=== PATIENT | male | born 1995 | race Caucasian/White ===

== ENCOUNTER 2022-06-11 15:23 | Observation (INO) ==
[2022-06-11 17:08] LABS: Basophils # (auto) 0.05 K/uL (0-0.2); Basophils % (auto) 0.5 %; Eosinophils # (auto) 0.03 K/uL (0-0.50); Eosinophils % (auto) 0.3 %; Hematocrit (blood only) 50.7 % (40.1-51.0); Hemoglobin 17.4 g/dl (14.0-18.0); Immature Granulocytes # (auto) 0.03 K/uL (0.00-0.02); Immature Granulocytes % (auto) 0.3 %; Lymphocytes # (auto) 2.47 K/uL (1.2-3.4); Lymphocytes % (auto) 25.1 %; Mean Corpuscular Hemoglobin 28.2 pg (25.0-34.0); Mean Corpuscular Hgb Conc 34.3 g/dL (32.0-36.0); Mean Corpuscular Volume 82.3 fL (80.0-100.0); Mean Platelet Volume 11.2 fL (9.4-12.4); Monocytes # (auto) 0.69 K/uL (0.24-0.82); Neutrophils # (auto) 6.56 K/uL (1.4-6.5); Neutrophils % (auto) 66.8 %; Platelet Count 301 K/uL (130-400); RDW Standard Deviation 38.5 fL (36.4-46.3); Red Blood Count 6.16 M/uL (4.63-6.08); White Blood Count 9.83 K/ul (4.8-10.8)
[2022-06-11 17:22] LABS: INR 1.1 (0.9-1.1); Partial Thromboplastin Time 26.8 Seconds (21.0-31.0); Prothrombin Time 11.2 Seconds (9.0-12.0)
[2022-06-11 17:52] LABS: Troponin I High Sensitivity 2.6 pg/ml (0-20)
[2022-06-11 17:56] LABS: Albumin Globulin Ratio 1.7 (0.9-2); Albumin Level 4.8 gm/dl (3.4-5.0); BUN Creatinine Ratio 13.6 (10-20); Bilirubin,Total 0.5 mg/dl (0.2-1.0); Calcium 9.8 mg/dl (8.5-10.1); Creatinine Clr Calc Pharmacy 141.7 ml/min; Est GFR (African American) 106.1 ml/min; Est GFR (Non-African American) 91.5 ml/min; Globulin 2.8 gm/dl (2.5-4.0); Potassium 3.9 mmol/L (3.5-5.1); Total Protein 7.6 gm/dl (6.0-8.3)
--- NOTE | 2022-06-11 18:13 | Emergency Department Note ---
History of Present Illness General Chief complaint: Chest Pain Stated complaint: CHEST PAIN Time Seen by Provider: 06/11/22 17:59 History of Present Illness This is a 26-year-old male that presents to the emergency department via private vehicle accompanied by female with complaints of "chest pain". The patient notes that the first episode occurred this past Saturday. He states that he was ascending a flight of steps and he felt quite short of breath and fatigued while doing so. He then noted lightheadedness, feeling exhausted, and diaphoretic. This lasted for a few minutes after ascending the flight of steps. He notes that he finds that he is quite dyspneic with exertion now. He also notes intermittent chest pain/tightness with exertion but also now occurring at rest. This has never happened before. No known trauma or injury. Patient denies any fevers, chills, vomiting, rhinorrhea, cough. He does note some nausea. Patient denies any cardiac history with his mother. He does not know his father's history. Patient does note that he has a history of anxiety, asthma. Home Medications Medication Instructions Recorded Confirmed Type albuterol sulfate 90 mcg/actuation 2 puff inhalation Q4H PRN 06/11/22 06/11/22 History aerosol inhaler Shortness Of Breath Or Wheezing hydroxyzine HCl 50 mg tablet 50 mg PO QID PRN Anxiety 06/11/22 06/11/22 History sertraline 25 mg tablet 25 mg PO DAILY 06/11/22 06/11/22 History Allergies Allergy/AdvReac Type Severity Reaction Status Date / Time clarithromycin Allergy Intermediate HIVES Verified 06/11/22 19:11 Macrolide Antibiotics Allergy Intermediate HIVES Verified 06/11/22 19:11 Quinolones Allergy Intermediate HIVES Verified 06/11/22 19:11 Past Med/Surg History Medical History Depression Essential tremor Generalized anxiety disorder Lumbar back pain with radiculopathy affecting right lower extremity Surgical History Hx of tonsillectomy Family History Other Depression Social History Smoking Status: Never smoker Hx Alcohol Use: Yes Alcohol Intake Frequency: 2-4 x/Month Hx Substance Use: Yes Feels Safe at Home: Yes Review of Systems A total of 10 systems reviewed and were otherwise negative Physical Exam Vital Signs Vital Signs - 24 hr 06/11/22 15:32 06/11/22 18:01 06/11/22 19:30 Temperature 37.0 C Temperature Source Temporal Artery Scan Pulse Rate 89 91 H Pulse Rate [Apical] 92 H Pulse Rate from SpO2 Sensor 95 H Pulse Rhythm [Apical] Regular Pulse Strength [Apical] Normal Respiratory Rate 18 20 20 Respiratory Effort / Characteristics Non-Labored Non-Labored Spontaneous Respiratory Depth Normal Normal Respiratory Pattern Regular Regular Blood Pressure 148/93 H 142/94 H Blood Pressure [Right Arm] 162/129 H Blood Pressure Mean 111 110 Blood Pressure Mean [Right Arm] 140 Blood Pressure Position Sitting Blood Pressure Position [Right Arm] Sitting Pulse Oximetry 97 95 98 Oxygen Delivery Method Room Air Room Air Sepsis Recent Fever Within 48 Hours No Sepsis New/Unexplained Change in Mental Status No Sepsis Action Taken by Nursing No Action Required 06/11/22 20:00 06/11/22 21:00 Temperature Temperature Source Pulse Rate 78 86 Pulse Rate [Apical] Pulse Rate from SpO2 Sensor 80 88 Pulse Rhythm [Apical] Pulse Strength [Apical] Respiratory Rate 20 12 Respiratory Effort / Characteristics Respiratory Depth Respiratory Pattern Blood Pressure 155/99 H 150/101 H Blood Pressure [Right Arm] Blood Pressure Mean 117 117 Blood Pressure Mean [Right Arm] Blood Pressure Position Blood Pressure Position [Right Arm] Pulse Oximetry 98 96 Oxygen Delivery Method Sepsis Recent Fever Within 48 Hours Sepsis New/Unexplained Change in Mental Status Sepsis Action Taken by Nursing VITAL SIGNS - Vital signs and nursing notes were reviewed. Stable and afebrile. GENERAL -26-year-old male appearing his stated age who is in no acute distress. Communicates well with provider and answers questions appropriately. SKIN - Without rashes. No meningeal or petechial rash. HEAD - NC/AT. EYES - PERRL with EOMI bilaterally. Sclera anicteric. EARS - No deformities of external structures noted on gross examination bilaterally. NOSE - Midline and without cyanosis. No epistaxis or purulent drainage noted. MOUTH/OROPHARYNX - Without perioral cyanosis. NECK - Neck with FROM. No nuchal rigidity. LUNGS - Chest wall symmetric without accessory muscle use, intercostals retractions, or central cyanosis. Normal vesicular breath sounds CTA B/L. No wheezes, rales, or rhonchi appreciated. CARDIAC - RRR with S1/S2. No murmur, rubs, or gallops appreciated. ABDOMEN - Abdominal contour normal without pulsations or visible masses. BS normoactive all four quadrants. No tenderness, palpable masses, hepatosplenomegaly, or ascites noted. EXTREMITIES - No clubbing or peripheral cyanosis. +5/5 strength noted in UE/LE bilaterally. NEUROLOGIC - Cranial nerves II through XII grossly intact. PSYCH - A&O, and cooperates fully with examiner. Pt is very pleasant and interacts well with examiner. Course Administered Medications Discontinued Medications Doxycycline Hyclate (Doxycycline Hyclate 100 Mg Cap) 100 mg PO NOW STA Stop: 06/11/22 20:13 Last Admin: 06/11/22 20:27 Dose: 100 mg Documented By: AMANDA Ioversol (Optiray 320 125ml) 120 ml IV ONCE ONE Stop: 06/11/22 18:56 Last Admin: 06/11/22 18:55 Dose: 1 ml Documented By: NAKUL Medical Decision Making Laboratory Data Result diagrams: 06/11/22 16:00 06/11/22 16:00 Lab Results 06/11/22 06/11/22 06/11/22 Range/Units 16:00 16:00 16:00 WBC 9.83 (4.8-10.8) K/ul RBC 6.16 H (4.63-6.08) M/uL Hgb 17.4 (14.0-18.0) g/dl Hct 50.7 (40.1-51.0) % MCV 82.3 (80.0-100.0) fL MCH 28.2 (25.0-34.0) pg MCHC 34.3 (32.0-36.0) g/dL RDW Std Deviation 38.5 (36.4-46.3) fL RDW Coeff of Sascha 13.0 (11.5-14.5) % Plt Count 301 (130-400) K/uL MPV 11.2 (9.4-12.4) fL Immature Gran % (Auto) 0.3 % Neut % (Auto) 66.8 % Lymph % (Auto) 25.1 % Darke % (Auto) 7.0 % Eos % (Auto) 0.3 % Baso % (Auto) 0.5 % Neut # (Auto) 6.56 H (1.4-6.5) K/uL Lymph # (Auto) 2.47 (1.2-3.4) K/uL Darke # (Auto) 0.69 (0.24-0.82) K/uL Eos # (Auto) 0.03 (0-0.50) K/uL Baso # (Auto) 0.05 (0-0.2) K/uL Immature Gran # (Auto) 0.03 H (0.00-0.02) K/uL PT 11.2 (9.0-12.0) Seconds INR 1.1 (0.9-1.1) APTT 26.8 (21.0-31.0) Seconds PTT Ratio 1.0 Sodium 138 (136-145) mmol/L Potassium 3.9 (3.5-5.1) mmol/L Chloride 103 (98-107) mmol/L Carbon Dioxide 27 (21-32) mmol/L Anion Gap 8 (3-11) BUN 15 (6-23) mg/dl Creatinine 1.10 (0.6-1.4) mg/dl Est Cr Clr Drug Dosing 141.7 ml/min Est GFR ( Amer) 106.1 ml/min Est GFR (Non-Af Amer) 91.5 ml/min BUN/Creatinine Ratio 13.6 (10-20) Glucose 87 (70-99(Fasting)) mg/dl Calcium 9.8 (8.5-10.1) mg/dl Magnesium (1.7-2.4) mg/dl Total Bilirubin 0.5 (0.2-1.0) mg/dl AST 36 (13-39) U/L ALT 72 H (7-52) U/L Alkaline Phosphatase 60 (34-104) U/L Troponin I High Sens 2.6 (0-20) pg/ml Total Protein 7.6 (6.0-8.3) gm/dl Albumin 4.8 (3.4-5.0) gm/dl Globulin 2.8 (2.5-4.0) gm/dl Albumin/Globulin Ratio 1.7 (0.9-2) Lyme Disease IgG Ab (Negative) Lyme Disease IgM Ab (Negative) SARS-CoV-2, RNA, NAAT (NEGATIVE) 06/11/22 06/11/22 06/11/22 Range/Units 18:16 18:17 18:17 WBC (4.8-10.8) K/ul RBC (4.63-6.08) M/uL Hgb (14.0-18.0) g/dl Hct (40.1-51.0) % MCV (80.0-100.0) fL MCH (25.0-34.0) pg MCHC (32.0-36.0) g/dL RDW Std Deviation (36.4-46.3) fL RDW Coeff of Sascha (11.5-14.5) % Plt Count (130-400) K/uL MPV (9.4-12.4) fL Immature Gran % (Auto) % Neut % (Auto) % Lymph % (Auto) % Darke % (Auto) % Eos % (Auto) % Baso % (Auto) % Neut # (Auto) (1.4-6.5) K/uL Lymph # (Auto) (1.2-3.4) K/uL Darke # (Auto) (0.24-0.82) K/uL Eos # (Auto) (0-0.50) K/uL Baso # (Auto) (0-0.2) K/uL Immature Gran # (Auto) (0.00-0.02) K/uL PT (9.0-12.0) Seconds INR (0.9-1.1) APTT (21.0-31.0) Seconds PTT Ratio Sodium (136-145) mmol/L Potassium (3.5-5.1) mmol/L Chloride (98-107) mmol/L Carbon Dioxide (21-32) mmol/L Anion Gap (3-11) BUN (6-23) mg/dl Creatinine (0.6-1.4) mg/dl Est Cr Clr Drug Dosing ml/min Est GFR ( Amer) ml/min Est GFR (Non-Af Amer) ml/min BUN/Creatinine Ratio (10-20) Glucose (70-99(Fasting)) mg/dl Calcium (8.5-10.1) mg/dl Magnesium 2.0 (1.7-2.4) mg/dl Total Bilirubin (0.2-1.0) mg/dl AST (13-39) U/L ALT (7-52) U/L Alkaline Phosphatase (34-104) U/L Troponin I High Sens 3.3 (0-20) pg/ml Total Protein (6.0-8.3) gm/dl Albumin (3.4-5.0) gm/dl Globulin (2.5-4.0) gm/dl Albumin/Globulin Ratio (0.9-2) Lyme Disease IgG Ab Negative (Negative) Lyme Disease IgM Ab Positive A (Negative) SARS-CoV-2, RNA, NAAT (NEGATIVE) 06/11/22 Range/Units 18:18 WBC (4.8-10.8) K/ul RBC (4.63-6.08) M/uL Hgb (14.0-18.0) g/dl Hct (40.1-51.0) % MCV (80.0-100.0) fL MCH (25.0-34.0) pg MCHC (32.0-36.0) g/dL RDW Std Deviation (36.4-46.3) fL RDW Coeff of Sascha (11.5-14.5) % Plt Count (130-400) K/uL MPV (9.4-12.4) fL Immature Gran % (Auto) % Neut % (Auto) % Lymph % (Auto) % Darke % (Auto) % Eos % (Auto) % Baso % (Auto) % Neut # (Auto) (1.4-6.5) K/uL Lymph # (Auto) (1.2-3.4) K/uL Darke # (Auto) (0.24-0.82) K/uL Eos # (Auto) (0-0.50) K/uL Baso # (Auto) (0-0.2) K/uL Immature Gran # (Auto) (0.00-0.02) K/uL PT (9.0-12.0) Seconds INR (0.9-1.1) APTT (21.0-31.0) Seconds PTT Ratio Sodium (136-145) mmol/L Potassium (3.5-5.1) mmol/L Chloride (98-107) mmol/L Carbon Dioxide (21-32) mmol/L Anion Gap (3-11) BUN (6-23) mg/dl Creatinine (0.6-1.4) mg/dl Est Cr Clr Drug Dosing ml/min Est GFR ( Amer) ml/min Est GFR (Non-Af Amer) ml/min BUN/Creatinine Ratio (10-20) Glucose (70-99(Fasting)) mg/dl Calcium (8.5-10.1) mg/dl Magnesium (1.7-2.4) mg/dl Total Bilirubin (0.2-1.0) mg/dl AST (13-39) U/L ALT (7-52) U/L Alkaline Phosphatase (34-104) U/L Troponin I High Sens (0-20) pg/ml Total Protein (6.0-8.3) gm/dl Albumin (3.4-5.0) gm/dl Globulin (2.5-4.0) gm/dl Albumin/Globulin Ratio (0.9-2) Lyme Disease IgG Ab (Negative) Lyme Disease IgM Ab (Negative) SARS-CoV-2, RNA, NAAT NEGATIVE (NEGATIVE) Imaging Data Radiologist's Impression: Chest CTA 06/11/22 18:08 CT angio chest PE protocol CT DOSE: 893.46 mGy.cm HISTORY: 26 years-old Male with chest pain w/ exertion, dyspnea. Acute shortness of breath with chest pain TECHNIQUE: Multiple CTA images of the chest were obtained after the intravenous administration of 120 ml Optiray. Coronal and sagittal MIPS were obtained from the axial data set and were submitted for review. All measurements were obtained according to NASCET criteria. A dose lowering technique was utilized adhering to the principles of ALARA. COMPARISON: CT abdomen and pelvis 01/23/2016 FINDINGS: CTA: There is adequate opacification of the pulmonary arteries to the level of the segmental branches without convincing evidence of acute pulmonary embolism. Study is mildly limited secondary to respiratory motion artifact. Normal thoracic aorta.Heart size is normal. CT CHEST: No dominant thyroid nodule is seen. No pathologically adenopathy by CT size criteria. There is no pneumothorax, pleural effusion or focal airspace consolidation. Hepatic steatosis. No acute abnormality of the imaged upper abdomen. The osseous structures appear intact. IMPRESSION: 1. No acute intrathoracic abnormality. No pulmonary emboli. 2. Hepatic steatosis. ACT 112: Negative or not required by law. The above report was generated using voice recognition software. It may contain grammatical, syntax or spelling errors. Electronically signed by: Hung Ariza M.D. 06/11/2022 7:28 PM MDM Narrative Patient was seen and evaluated as above in room C12. Review was performed of nursing notes and vital signs. After obtaining a thorough history and physical examination the above work up was performed. Patient presents to us today for evaluation of chest pain but also feeling fatigued and dyspneic. This also occurs with exertion. He states that while waiting in the waiting room he did have some episodes of chest pain. These seem to come and go. He has never had this before. No rashes. No recent tick bites that he is aware of. Options of care were discussed with the patient. IV access was established. Labs were drawn. EKG was obtained and reveals normal sinus rhythm at a rate of 76 bpm. QTc 398. QRS 84. No ST elevation. No leukocytosis or concerning anemia. Coags normal. No evidence of kidney or liver failure. ALT mildly elevated at 72. Troponin x2 negative. I did find it reasonable to discuss the case with the attending physician as well as with the hospitalist service to further evaluate the patient's exertional chest pain. Patient in agreement with plan of care. Lyme test was still pending at time of case discussion with the hospitalist. However, Lyme testing positive IgM with Western blot pending. IgG negative. I did discuss this then with the hospitalist. COVID-negative. P.o. doxycycline was ordered. Certainly there is likely a component of Lyme causing his symptoms however I still find it reasonable to further evaluate the patient in the inpatient setting for his exertional chest pain/dyspnea/diaphoresis/fatigue. Patient happy with plan of care and amenable to plan. Please refer to further documentation regarding his stay. GCS: 15 In the evaluation and treatment of this patient, the following differential diagnoses were considered: IN, ASC, Dysrhythmia, Angina, Mediastinitis, GERD, Esophagitis, PE, Pneumonia, Bronchitis, Costochondritis, Rib Fracture, Lyme carditis/pericarditis, among others. Impression & Plan Chest pain, Lyme disease, acute Discharge Plan Visit Data Chief Complaint: Chest Pain Stated Complaint: CHEST PAIN ED Provider: Alan Lam ED Midlevel Provider: Bamat,Angel W Discharge Problem: Chest pain, Lyme disease, acute Patient Disposition: Admitted As Inpatient Condition: Good Discharge Instructions Interventions: ED Discharge Assessment Last Done: 06/11/22 22:37
[2022-06-11] MEDS ORDERED: OPTIRAY 320 125ml IV ONE (18:55)
--- NOTE | 2022-06-11 19:30 | CT Scan Report ---
CT angio chest PE protocol CT DOSE: 893.46 mGy.cm HISTORY: 26 years-old Male with chest pain w/ exertion, dyspnea. Acute shortness of breath with toya st pain TECHNIQUE: Multiple CTA images of the chest were obtained after the intravenous administration of 120 ml Optiray. Coronal and sagittal MIPS were obtained from the axial data set and were submitted for review. All measurements were obtained according to NASCET criteria. A dose lowering technique was u tilized adhering to the principles of ALARA. COMPARISON: CT abdomen and pelvis 01/23/2016 FINDINGS: CTA: There is adequate opacification of the pulmonary arteries to the level of the segmental branches with out convincing evidence of acute pulmonary embolism. Study is mildly limited secondary to respiratory motion artifact. Normal thoracic aorta.Heart size is normal. CT CHEST: No dominant thyroid nodule is seen. No pathologically adenopathy by CT size criteria. There is no pn eumothorax, pleural effusion or focal airspace consolidation. Hepatic steatosis. No acute abnormality of the imaged upper abdomen. The osseous structures appear i ntact. IMPRESSION: 1. No acute intrathoracic abnormality. No pulmonary emboli. 2. Hepatic steatosis. ACT 112: Negative or not required by law. The above report was generated using voice recognition software. It may contain grammatical, syntax o r spelling errors. Electronically signed by: Hung Ariza M.D. 06/11/2022 7:28 PM
[2022-06-11 19:31] LABS: Lyme Ab IgG w/WB Rflx Negative (Negative)
[2022-06-11 20:02] LABS: Lyme Ab IgM w/WB Rflx Positive (Negative)
[2022-06-11] MEDS ORDERED: DOXYCYCLINE HYCLATE 100 MG CAP PO STA (20:12)
--- NOTE | 2022-06-11 20:20 | History & Physical Report ---
Date of Service June 11, 2022 Assessment & Plan (1) Chest pain: (2) Lyme disease, acute: (3) Depression: (4) Generalized anxiety disorder: Plan This is a 76-year-old male with PMH of generalized anxiety disorder and essential tremor who presents with chest pain and was found to have acute lyme disease. Please see Dr. Wilson's addendum for assessment and plan details. History of Present Illness Chief Complaint: Chest pain Primary Care Provider: Harsh Shepard MD This is a 76-year-old male with PMH of generalized anxiety disorder and essential tremor who presents with chest pain. First noted chest discomfort with exertion 4 days ago associated with overall fatigue, achiness and some shortness of breath. Rescue exhausted going up and down steps which is not normal for him. Also endorses some nausea but is wondering now if that was precipitated by anxiety he was feeling about his chest pain. Is currently resting comfortably. States he still has an aching discomfort in his chest but its very mild. Denies any fever, chills, shortness of breath, nausea or palpitations. No dysuria, diarrhea or constipation. Denies history of known Lyme disease. Does live with pets at home. Denies any rashes but states it is difficult to tell with his right upper extremity tattoo sleeve. Allergies Allergy/AdvReac Type Severity Reaction Status Date / Time clarithromycin Allergy Intermediate HIVES Verified 06/11/22 19:11 Macrolide Antibiotics Allergy Intermediate HIVES Verified 06/11/22 19:11 Quinolones Allergy Intermediate HIVES Verified 06/11/22 19:11 Home Medications Medication Instructions Recorded Confirmed Type albuterol sulfate 90 mcg/actuation 2 puff inhalation Q4H PRN 06/11/22 06/11/22 History aerosol inhaler Shortness Of Breath Or Wheezing hydroxyzine HCl 50 mg tablet 50 mg PO QID PRN Anxiety 06/11/22 06/11/22 History sertraline 25 mg tablet 25 mg PO DAILY 06/11/22 06/11/22 History Past Med/Surg History Medical History Depression Essential tremor Generalized anxiety disorder Lumbar back pain with radiculopathy affecting right lower extremity Surgical History Hx of tonsillectomy Family History Other Depression Social History Smoking Status: Never smoker Do You Dip or Chew Tobacco: No; Hx Alcohol Use: Yes Alcohol Intake Frequency: 2-4 x/Month Hx Substance Use: No Preferred Language: [place] [employer] Required: No Beliefs That Will Affect Care: None Current Living Situation: Spouse Other Information That Helps Us Care for You: No Feels Safe at Home: Yes Safety Concerns: Feels Safe At This Time Assistive Devices: Glasses Review of Systems Review of Systems: At least ten systems reviewed and negative except as noted in the HPI. Physical Exam Physical Exam: General Appearance: WD/WN, vitals as above, NAD, sitting up in bed, pleasant, obese Head: normocephalic, atraumatic Eyes: normal inspection, PERRL, conjunctivae normal, anicteric sclerae ENT: external ear and nose normal, oropharynx normal Neck: normal visual inspection, trachea midline, no thyromegaly Respiratory: normal respiratory effort, lungs clear to auscultation, no wheeze, rales, rhonchi. No accessory muscle use Cardiovascular: regular rate, rhythm, no murmur, normal peripheral pulses, no BLE edema. Vessels: no JVD Chest: normal inspection of chest Abdomen/GI: normal bowel sounds, soft, nontender, no hepatosplenomegaly Extremities/Musculoskeletal: no cyanosis or clubbing, extremities motor strength 5/5 Neurologic: PERRL, EOMI, accommodation nl, no face palsy, no dysarthria, CN's II-XI intact bilaterally and moves all extremities Psychiatric: A+Ox3, euthymic affect Skin: no rashes, normal color, warm/dry. Some lesions on RUE 2/2 healing tattoo sleeve- no drainage Results & Data Results & Data ([facility]) Vital Signs (Past 12 Hours) Vital Signs Temp Pulse Pulse Resp BP BP Pulse Ox 06/11/22 19:30 91 H 20 142/94 H 98 06/11/22 18:01 92 H 20 162/129 H 95 06/11/22 15:32 37.0 C 89 18 148/93 H 97 O2 Del Method 06/11/22 19:30 06/11/22 18:01 Room Air 06/11/22 15:32 Room Air Laboratory Results Short CBC 06/11/22 Range/Units 16:00 WBC 9.83 (4.8-10.8) K/ul Hgb 17.4 (14.0-18.0) g/dl Hct 50.7 (40.1-51.0) % Plt Count 301 (130-400) K/uL BMP 06/11/22 16:00 Sodium 138 Potassium 3.9 Chloride 103 Carbon Dioxide 27 BUN 15 Creatinine 1.10 Glucose 87 Calcium 9.8 Liver Function 06/11/22 Range/Units 16:00 Total Bilirubin 0.5 (0.2-1.0) mg/dl AST 36 (13-39) U/L ALT 72 H (7-52) U/L Alkaline Phosphatase 60 (34-104) U/L Albumin 4.8 (3.4-5.0) gm/dl Diagnostic Findings Chest CTA 06/11/22 18:08 CT angio chest PE protocol CT DOSE: 893.46 mGy.cm HISTORY: 26 years-old Male with chest pain w/ exertion, dyspnea. Acute shortness of breath with chest pain TECHNIQUE: Multiple CTA images of the chest were obtained after the intravenous administration of 120 ml Optiray. Coronal and sagittal MIPS were obtained from the axial data set and were submitted for review. All measurements were obtained according to NASCET criteria. A dose lowering technique was utilized adhering to the principles of ALARA. COMPARISON: CT abdomen and pelvis 01/23/2016 FINDINGS: CTA: There is adequate opacification of the pulmonary arteries to the level of the segmental branches without convincing evidence of acute pulmonary embolism. Study is mildly limited secondary to respiratory motion artifact. Normal thoracic aorta.Heart size is normal. CT CHEST: No dominant thyroid nodule is seen. No pathologically adenopathy by CT size criteria. There is no pneumothorax, pleural effusion or focal airspace consolidation. Hepatic steatosis. No acute abnormality of the imaged upper abdomen. The osseous structures appear intact. IMPRESSION: 1. No acute intrathoracic abnormality. No pulmonary emboli. 2. Hepatic steatosis. ACT 112: Negative or not required by law. The above report was generated using voice recognition software. It may contain grammatical, syntax or spelling errors. Electronically signed by: Hung Ariza M.D. 06/11/2022 7:28 PM Supervising Physician Co-Signing Physician Notes IM ATTENDING : Patient seen and examined. History obtained from patient and records. Preceding documentation by Ms. Leta Han PA-C reviewed. FINAL ASSESSMENT AND PLAN as follows : Chest pain possible Lyme carditis Situational hypertension Anxiety disorder History essential tremor PCU IV ceftriaxone TTE, Cardiology consult Re: Possible pericarditis ID consult Re: Possible Lyme carditis DVT prophylaxis. Lovenox subcu Full code Text document was generated using reportbrain voice recognition software. It may contain grammatical or spelling errors. Kindly contact undersigned for clarification of any documentation item in question.
[2022-06-11] MEDS ORDERED: cefTRIAXone SODIUM 2,000 MG/70 ML BAG IV STA (21:55)
[2022-06-11] MEDS ORDERED: SODIUM CHLORIDE 0.9% 1000ML 1,000 ML IV ONE (22:00)
[2022-06-11] MEDS ORDERED: ACETAMINOPHEN 325 MG TAB PO PRN (22:56)
[2022-06-11] MEDS ORDERED: IBUPROFEN 200 MG TAB PO PRN (22:56)
[2022-06-11] MEDS ORDERED: KETOROLAC TROMETHAMINE 15 MG/ML VIAL IV PRN (22:56)
[2022-06-11] MEDS ORDERED: hydrOXYzine HCl 25 MG TAB PO PRN (22:56)
--- NOTE | 2022-06-12 08:18 | Cardiology Consultation ---
Date of Consultation June 12, 2022 Assessment & Plan (1) Lyme disease, acute: (2) Chest pain: (3) Generalized anxiety disorder: Plan Patient admitted for intermittent chest pain, now resolved Found to be + Lyme disease. Western Blot pending. ID consulted and started on antibiotics. Cardiology was consulted to r/o lyme carditis, pericarditis. At this point, his EKG was without diffuse ST/T wave elevation, his HS troponin is negative x2, his ESR and CRP are within normal limits without elevation. No clinical signs of lyme carditis/myocarditis/pericarditis. His echo results are pending and will need to be reviewed when available. His symptoms have resolved. Would recommend treating underlying lyme infection. Case discussed with Dr. Dueñas. Await echo results, but I would anticipate no further cardiac testing or treatment needed, unless patient does have evidence of pericardial effusion. Supervising Physician Co-Signing Physician Notes I have seen and examined the patient. I reviewed the medical record and discussed the case with Re Joe. I also reviewed the patient's echocardiogram which is essentially normal. There was a incidental finding of a trivial pericardial effusion which is not clinically significant. I agree the patient's symptoms are related to Lyme's disease. He is being treated with antibiotics. At this point I think he can be discharged to outpatient follow-up. History of Present Illness Reason for Consultation: + Lyme; chest pain; R/O pericarditis, lyme carditis Requesting Physician: Dr. Wilson Attending Physician: Dr. Dueñas History of Present Illness Patient is a 26-year-old male admitted for atypical chest pain over the last few days with associated diaphoresis and intermittent shortness of breath. Upon arrival, EKG demonstrated normal sinus rhythm without acute changes. Initial Lyme screen was positive. Patient recalls "scratching something off the back of his arm" the other day. No known rashes but he has a significant tattoo on that right arm. Saturday evening patient fell asleep after having a few beers. He slept for about 3 hours. He woke up, felt slightly disoriented. Climbed one flight of stairs to bed where he felt increased dyspnea, then became daiphoretic and near syncopal. He went to bed and symptoms resolved. Then over the next 24 hours, patient noted increased SOB at times, with intermittent left sided chest ache. He came to the ER for evaluation. He denies readiation of the chest pain. No change in symptoms with laying supine or sitting upright. no pleuritic chest pain. He denies history of cardiovascular problems. He is treated for underlying anxiety/depression. He reports history of intermittent hypertension, but lost 30 lbs and BP improved. At time of consult, patient resting in bed comfortably. He denies recurrent chest pain or dyspnea. Lyme Western blot is pending. Started on antibiotics. He is feeling well this morning. No fever or chills. Allergies Allergy/AdvReac Type Severity Reaction Status Date / Time clarithromycin Allergy Intermediate HIVES Verified 06/11/22 19:11 Macrolide Antibiotics Allergy Intermediate HIVES Verified 06/11/22 19:11 Quinolones Allergy Intermediate HIVES Verified 06/11/22 19:11 Home Medications Medication Instructions Recorded Confirmed Type albuterol sulfate 90 mcg/actuation 2 puff inhalation Q4H PRN 06/11/22 06/11/22 History aerosol inhaler Shortness Of Breath Or Wheezing hydroxyzine HCl 50 mg tablet 50 mg PO QID PRN Anxiety 06/11/22 06/11/22 History sertraline 25 mg tablet 25 mg PO DAILY 06/11/22 06/11/22 History Patient History Medical History Depression Essential tremor Generalized anxiety disorder Lumbar back pain with radiculopathy affecting right lower extremity Surgical History Hx of tonsillectomy Family History Other Depression Social History Smoking Status: Never smoker Do You Dip or Chew Tobacco: No; Hx Alcohol Use: Yes Alcohol Intake Frequency: 2-4 x/Month Hx Substance Use: No Preferred Language: Venezuelan Lookback Coordinator Required: No Beliefs That Will Affect Care: None Current Living Situation: Spouse Other Information That Helps Us Care for You: No Feels Safe at Home: Yes Safety Concerns: Feels Safe At This Time Assistive Devices: None Review of Systems Review of Systems: All systems reviewed & are unremarkable except as noted in HPI & below Physical Exam Physical Exam: General Appearance: WD/WN, vitals as above, NAD, sitting up in bed, pleasant, obese Head: normocephalic, atraumatic Eyes: normal inspection, PERRL, conjunctivae normal, anicteric sclerae ENT: external ear and nose normal, oropharynx normal Neck: normal visual inspection, trachea midline, no thyromegaly Respiratory: normal respiratory effort, lungs clear to auscultation, no wheeze, rales, rhonchi. No accessory muscle use Cardiovascular: regular rate, rhythm, no murmur, normal peripheral pulses, no BLE edema. Vessels: no JVD Chest: normal inspection of chest Abdomen/GI: normal bowel sounds, soft, nontender, no hepatosplenomegaly Extremities/Musculoskeletal: no cyanosis or clubbing, extremities motor strength 5/5 Neurologic: PERRL, EOMI, accommodation nl, no face palsy, no dysarthria, CN's II-XI intact bilaterally and moves all extremities Psychiatric: A+Ox3, euthymic affect Skin: no rashes, normal color, warm/dry. Some lesions on RUE 2/2 healing tattoo sleeve- no drainage Results & Data ([facility]) Vital Signs (Past 12 Hours) Vital Signs Temp Pulse Pulse Resp BP BP Pulse Ox 06/12/22 07:23 64 06/12/22 03:00 36.5 C 73 20 149/86 H 94 06/11/22 23:12 105 H 06/11/22 22:56 36.8 C 102 H 16 142/86 H 94 06/11/22 21:00 86 12 150/101 H 96 O2 Del Method 06/12/22 07:23 06/12/22 03:00 Room Air 06/11/22 23:12 06/11/22 22:56 Room Air 06/11/22 21:00 Laboratory Results Cardiac Enzymes 06/11/22 06/11/22 Range/Units 16:00 18:17 AST 36 (13-39) U/L Troponin I High Sens 2.6 3.3 (0-20) pg/ml Coagulation 06/11/22 Range/Units 16:00 PT 11.2 (9.0-12.0) Seconds APTT 26.8 (21.0-31.0) Seconds CBC 06/11/22 06/12/22 Range/Units 16:00 07:27 WBC 9.83 6.62 (4.8-10.8) K/ul RBC 6.16 H 5.65 (4.63-6.08) M/uL Hgb 17.4 15.7 (14.0-18.0) g/dl Hct 50.7 46.7 (40.1-51.0) % Plt Count 301 273 (130-400) K/uL Neut # (Auto) 6.56 H 3.14 (1.4-6.5) K/uL Lymph # (Auto) 2.47 2.85 (1.2-3.4) K/uL [place] # (Auto) 0.69 0.49 (0.24-0.82) K/uL Eos # (Auto) 0.03 0.08 (0-0.50) K/uL Baso # (Auto) 0.05 0.04 (0-0.2) K/uL Comprehensive Metabolic Panel 06/11/22 06/12/22 Range/Units 16:00 07:27 Sodium 138 137 (136-145) mmol/L Potassium 3.9 3.8 (3.5-5.1) mmol/L Chloride 103 102 (98-107) mmol/L Carbon Dioxide 27 29 (21-32) mmol/L BUN 15 14 (6-23) mg/dl Creatinine 1.10 1.06 (0.6-1.4) mg/dl Glucose 87 86 (70-99(Fasting)) mg/dl Calcium 9.8 9.3 (8.5-10.1) mg/dl AST 36 (13-39) U/L ALT 72 H (7-52) U/L Alkaline Phosphatase 60 (34-104) U/L Total Protein 7.6 (6.0-8.3) gm/dl Albumin 4.8 (3.4-5.0) gm/dl Intake and Output 06/11/22 06/12/22 06/12/22 22:59 06:59 14:59 Intake Total 320 / 320 Balance 320 / 320 Intake: IV 70 / 70 cefTRIAXone SODIUM 2,000 mg In 70 / 70 70 ml @ 140 mls/hr IV NOW STA Rx#:[id number] Oral 250 / 250 Other: Weight 125 kg 126.5 kg Weight Measurement Method Chair Scale Standing Scale Diagnostic Findings EKG on admission reviewed: Normal sinus rhythm ECG No previous ECGs available No diffuse ST elevation Telemetry reviewed: NSR, 70-100 bpm, no arrhythmias Echo results pending Laboratory Results WBC 9.83 K/ul (4.8-10.8) 06/11/22 16:00 RBC 6.16 M/uL (4.63-6.08) H 06/11/22 16:00 Hgb 17.4 g/dl (14.0-18.0) 06/11/22 16:00 Hct 50.7 % (40.1-51.0) 06/11/22 16:00 MCV 82.3 fL (80.0-100.0) 06/11/22 16:00 MCH 28.2 pg (25.0-34.0) 06/11/22 16:00 MCHC 34.3 g/dL (32.0-36.0) 06/11/22 16:00 RDW Std Deviation 38.5 fL (36.4-46.3) 06/11/22 16:00 RDW Coeff of Sascha 13.0 % (11.5-14.5) 06/11/22 16:00 Plt Count 301 K/uL (130-400) 06/11/22 16:00 MPV 11.2 fL (9.4-12.4) 06/11/22 16:00 Immature Gran % (Auto) 0.3 % 06/11/22 16:00 Neut % (Auto) 66.8 % 06/11/22 16:00 Lymph % (Auto) 25.1 % 06/11/22 16:00 [place] % (Auto) 7.0 % 06/11/22 16:00 Eos % (Auto) 0.3 % 06/11/22 16:00 Baso % (Auto) 0.5 % 06/11/22 16:00 Neut # (Auto) 6.56 K/uL (1.4-6.5) H 06/11/22 16:00 Lymph # (Auto) 2.47 K/uL (1.2-3.4) 06/11/22 16:00 [place] # (Auto) 0.69 K/uL (0.24-0.82) 06/11/22 16:00 Eos # (Auto) 0.03 K/uL (0-0.50) 06/11/22 16:00 Baso # (Auto) 0.05 K/uL (0-0.2) 06/11/22 16:00 Immature Gran # (Auto) 0.03 K/uL (0.00-0.02) H 06/11/22 16:00 PT 11.2 Seconds (9.0-12.0) 06/11/22 16:00 INR 1.1 (0.9-1.1) 06/11/22 16:00 APTT 26.8 Seconds (21.0-31.0) 06/11/22 16:00 PTT Ratio 1.0 06/11/22 16:00 Sodium 138 mmol/L (136-145) 06/11/22 16:00 Potassium 3.9 mmol/L (3.5-5.1) 06/11/22 16:00 Chloride 103 mmol/L (98-107) 06/11/22 16:00 Carbon Dioxide 27 mmol/L (21-32) 06/11/22 16:00 Anion Gap 8 (3-11) 06/11/22 16:00 BUN 15 mg/dl (6-23) 06/11/22 16:00 Creatinine 1.10 mg/dl (0.6-1.4) 06/11/22 16:00 Est Cr Clr Drug Dosing 141.7 ml/min 06/11/22 16:00 Est GFR ( Amer) 106.1 ml/min 06/11/22 16:00 Est GFR (Non-Af Amer) 91.5 ml/min 06/11/22 16:00 BUN/Creatinine Ratio 13.6 (10-20) 06/11/22 16:00 Glucose 87 mg/dl (70-99(Fasting)) 06/11/22 16:00 Calcium 9.8 mg/dl (8.5-10.1) 06/11/22 16:00 Magnesium 2.0 mg/dl (1.7-2.4) 06/11/22 18:17 Total Bilirubin 0.5 mg/dl (0.2-1.0) 06/11/22 16:00 AST 36 U/L (13-39) 06/11/22 16:00 ALT 72 U/L (7-52) H 06/11/22 16:00 Alkaline Phosphatase 60 U/L (34-104) 06/11/22 16:00 Troponin I High Sens 3.3 pg/ml (0-20) 06/11/22 18:17 Total Protein 7.6 gm/dl (6.0-8.3) 06/11/22 16:00 Albumin 4.8 gm/dl (3.4-5.0) 06/11/22 16:00 Globulin 2.8 gm/dl (2.5-4.0) 06/11/22 16:00 Albumin/Globulin Ratio 1.7 (0.9-2) 06/11/22 16:00 Lyme Disease IgG Ab Negative (Negative) 06/11/22 18:16 Lyme Disease IgM Ab Positive (Negative) A 06/11/22 18:16 SARS-CoV-2, RNA, NAAT NEGATIVE (NEGATIVE) 06/11/22 18:18 Impressions Chest CTA 06/11/22 18:08 CT angio chest PE protocol CT DOSE: 893.46 mGy.cm HISTORY: 26 years-old Male with chest pain w/ exertion, dyspnea. Acute shortness of breath with chest pain TECHNIQUE: Multiple CTA images of the chest were obtained after the intravenous administration of 120 ml Optiray. Coronal and sagittal MIPS were obtained from the axial data set and were submitted for review. All measurements were obtained according to NASCET criteria. A dose lowering technique was utilized adhering to the principles of ALARA. COMPARISON: CT abdomen and pelvis 01/23/2016 FINDINGS: CTA: There is adequate opacification of the pulmonary arteries to the level of the segmental branches without convincing evidence of acute pulmonary embolism. Study is mildly limited secondary to respiratory motion artifact. Normal thoracic aorta.Heart size is normal. CT CHEST: No dominant thyroid nodule is seen. No pathologically adenopathy by CT size criteria. There is no pneumothorax, pleural effusion or focal airspace consolidation. Hepatic steatosis. No acute abnormality of the imaged upper abdomen. The osseous structures appear intact. IMPRESSION: 1. No acute intrathoracic abnormality. No pulmonary emboli. 2. Hepatic steatosis. ACT 112: Negative or not required by law. The above report was generated using voice recognition software. It may contain grammatical, syntax or spelling errors. Electronically signed by: Hung Ariza M.D. 06/11/2022 7:28 PM Medications Administered Current Inpatient Medications Acetaminophen (Acetaminophen 325 Mg Tab) 650 mg PO Q4H PRN PRN Reason: Pain or Fever Stop: 07/11/22 22:55 Last Admin: 06/11/22 23:46 Dose: 650 mg Enoxaparin Sodium (Enoxaparin Inj 40 Mg/0.4 Ml Syr) 40 mg SQ QAM SARINA Stop: 07/12/22 08:59 Last Admin: 06/12/22 07:36 Dose: 40 mg Hydroxyzine HCl (Hydroxyzine Hcl 25 Mg Tab) 50 mg PO QID PRN PRN Reason: Anxiety Stop: 07/11/22 22:55 Sodium Chloride (Nss 1000ml) 1,000 mls @ 50 mls/hr IV .Q20H ONE Stop: 06/12/22 17:59 Last Admin: 06/11/22 23:23 Dose: 50 mls/hr Ceftriaxone Sodium 2,000 mg/ (Dextrose) 70 mls @ 100 mls/hr IV Q24H SARINA; Protocol Stop: 06/22/22 21:59 Ibuprofen (Ibuprofen 200 Mg Tab) 200 mg PO Q6H PRN PRN Reason: Mild Pain Stop: 07/11/22 22:55 Ketorolac Tromethamine (Ketorolac Tromethamine 15 Mg/Ml Vial) 15 mg IV Q6H PRN PRN Reason: Pain Stop: 06/16/22 22:55 Sertraline HCl (Sertraline Hcl 50 Mg Tablet) 25 mg PO DAILY SARINA Stop: 07/12/22 08:59 Last Admin: 06/12/22 07:34 Dose: 25 mg
[2022-06-12 08:22] LABS: Basophils # (auto) 0.04 K/uL (0-0.2); Basophils % (auto) 0.6 %; Eosinophils # (auto) 0.08 K/uL (0-0.50); Eosinophils % (auto) 1.2 %; Hematocrit (blood only) 46.7 % (40.1-51.0); Hemoglobin 15.7 g/dl (14.0-18.0); Immature Granulocytes # (auto) 0.02 K/uL (0.00-0.02); Immature Granulocytes % (auto) 0.3 %; Lymphocytes # (auto) 2.85 K/uL (1.2-3.4); Lymphocytes % (auto) 43.1 %; Mean Corpuscular Hemoglobin 27.8 pg (25.0-34.0); Mean Corpuscular Hgb Conc 33.6 g/dL (32.0-36.0); Mean Corpuscular Volume 82.7 fL (80.0-100.0); Mean Platelet Volume 11.6 fL (9.4-12.4); Monocytes # (auto) 0.49 K/uL (0.24-0.82); Monocytes % (auto) 7.4 %; Neutrophils # (auto) 3.14 K/uL (1.4-6.5); Neutrophils % (auto) 47.4 %; Platelet Count 273 K/uL (130-400); RDW Coefficient of Variation 12.9 % (11.5-14.5); RDW Standard Deviation 38.4 fL (36.4-46.3); Red Blood Count 5.65 M/uL (4.63-6.08); White Blood Count 6.62 K/ul (4.8-10.8)
[2022-06-12 08:43] LABS: Anion Gap 6 (3-11); BUN Creatinine Ratio 13.2 (10-20); Blood Urea Nitrogen 14 mg/dl (6-23); C Reactive Protein < 0.50 mg/dl (0-0.5); Calcium 9.3 mg/dl (8.5-10.1); Carbon Dioxide 29 mmol/L (21-32); Chloride 102 mmol/L (98-107); Creatinine Clr Calc Pharmacy 147.9 ml/min; Est GFR (African American) 110.9 ml/min; Est GFR (Non-African American) 95.7 ml/min; Glucose 86 mg/dl (70-99(Fasting)); Potassium 3.8 mmol/L (3.5-5.1); Sodium 137 mmol/L (136-145)
[2022-06-12] MEDS ORDERED: SERTRALINE HCL 50 MG TABLET PO SCH (09:00)
[2022-06-12] MEDS ORDERED: ENOXAPARIN INJ 40 MG/0.4 ML SYR SQ SCH (09:00)
[2022-06-12] MEDS ORDERED: DOXYCYCLINE HYCLATE 100 MG CAP PO SCH (11:15)
--- NOTE | 2022-06-12 11:42 | Electrocardiogram Report ---
Test Reason : Blood Pressure : / mmHG Vent. Rate : 076 BPM Atrial Rate : 076 BPM P-R Int : 136 ms QRS Dur : 084 ms QT Int : 354 ms P-R-T Axes : 006 051 035 degrees QTc Int : 398 ms Normal sinus rhythm Normal ECG No previous ECGs available Confirmed by Tho Casas ([id number]) on 06/12/2022 11:41:43 AM Referred By: REFERRED SELF Confirmed By:Soto Casas
--- NOTE | 2022-06-12 13:55 | Discharge Summary ---
Date of Service June 12, 2022 Admission HPI Per Admitting Provider This is a 76-year-old male with PMH of generalized anxiety disorder and essential tremor who presents with chest pain. First noted chest discomfort with exertion 4 days ago associated with overall fatigue, achiness and some shortness of breath. [place] exhausted going up and down steps which is not normal for him. Also endorses some nausea but is wondering now if that was precipitated by anxiety he was feeling about his chest pain. Is currently resting comfortably. States he still has an aching discomfort in his chest but its very mild. Denies any fever, chills, shortness of breath, nausea or palpitations. No dysuria, diarrhea or constipation. Denies history of known Lyme disease. Does live with pets at home. Denies any rashes but states it is difficult to tell with his right upper extremity tattoo sleeve. Admission Exam Per Admitting Provider General Appearance:WD/WN, vitals as above, NAD, sitting up in bed, pleasant, obese Head: normocephalic, atraumatic Eyes:normal inspection, PERRL, conjunctivae normal, anicteric sclerae ENT: external ear and nose normal, oropharynx normal Neck: normal visual inspection, trachea midline, no thyromegaly Respiratory:normal respiratory effort, lungs clear to auscultation, no wheeze, rales, rhonchi. No accessory muscle use Cardiovascular: regular rate, rhythm, no murmur, normal peripheral pulses, no BLE edema. Vessels: no JVD Chest: normal inspection of chest Abdomen/GI: normal bowel sounds, soft, nontender, no hepatosplenomegaly Extremities/Musculoskeletal: no cyanosis or clubbing, extremities motor strength 5/5 Neurologic: PERRL, EOMI, accommodation nl, no face palsy, no dysarthria, CN's II-XI intact bilaterally and moves all extremities Psychiatric:A+Ox3, euthymic affect Skin: no rashes, normal color, warm/dry. Some lesions on RUE 2/2 healing tattoo sleeve- no drainage Principal Diagnosis Lyme disease Discharge Exam General: Lying comfortably in bed, not in distress, on room air HEENT: EOMI, LEANN, MMM Chest: no chest wall tenderness. Clear breath sounds bilaterally, no wheezes or crackles CVS: Regular rate and rhythm, normal heart sounds, no murmur Abdomen: Soft, non tender, not distended, normal bowel sounds Neuro: Awake, alert, oriented, conversing well, non focal Extremities: No cyanosis, clubbing or edema Discharge Data Allergies Allergy/AdvReac Type Severity Reaction Status Date / Time clarithromycin Allergy Intermediate HIVES Verified 06/11/22 19:11 Macrolide Antibiotics Allergy Intermediate HIVES Verified 06/11/22 19:11 Quinolones Allergy Intermediate HIVES Verified 06/11/22 19:11 Consultations 06/11/22 19:41 ED Decision to Admit Stat 06/11/22 22:56 Consult Cardiology Routine Ordered Studies 06/11/22 18:08 CT angio chest PE protocol Stat Laboratory Results WBC 6.62 K/ul (4.8-10.8) 06/12/22 07:27 RBC 5.65 M/uL (4.63-6.08) 06/12/22 07:27 Hgb 15.7 g/dl (14.0-18.0) 06/12/22 07:27 Hct 46.7 % (40.1-51.0) 06/12/22 07:27 MCV 82.7 fL (80.0-100.0) 06/12/22 07:27 MCH 27.8 pg (25.0-34.0) 06/12/22 07:27 MCHC 33.6 g/dL (32.0-36.0) 06/12/22 07:27 RDW Std Deviation 38.4 fL (36.4-46.3) 06/12/22 07:27 RDW Coeff of Sascha 12.9 % (11.5-14.5) 06/12/22 07:27 Plt Count 273 K/uL (130-400) 06/12/22 07:27 MPV 11.6 fL (9.4-12.4) 06/12/22 07:27 Immature Gran % (Auto) 0.3 % 06/12/22 07:27 Neut % (Auto) 47.4 % 06/12/22 07:27 Lymph % (Auto) 43.1 % 06/12/22 07:27 [place] % (Auto) 7.4 % 06/12/22 07:27 Eos % (Auto) 1.2 % 06/12/22 07:27 Baso % (Auto) 0.6 % 06/12/22 07:27 Neut # (Auto) 3.14 K/uL (1.4-6.5) 06/12/22 07: Lymph # (Auto) 2.85 K/uL (1.2-3.4) 06/12/22 07: [place] # (Auto) 0.49 K/uL (0.24-0.82) 06/12/22 07: Eos # (Auto) 0.08 K/uL (0-0.50) 06/12/22 07: Baso # (Auto) 0.04 K/uL (0-0.2) 06/12/22 07: Immature Gran # (Auto) 0.02 K/uL (0.00-0.02) 06/12/22: ESR 5 mm/hr (0-15) 06/12/22 07: PT 11.2 Seconds (9.0-12.0) 06/11/22 16:00 INR 1.1 (0.9-1.1) 06/11/22 16:00 APTT 26.8 Seconds (21.0-31.0) 06/11/22 16:00 PTT Ratio 1.0 06/11/22 16:00 Sodium 137 mmol/L (136-145) 06/12/22 07: Potassium 3.8 mmol/L (3.5-5.1) 06/12/22 07: Chloride 102 mmol/L (98-107) 06/12/22 07: Carbon Dioxide 29 mmol/L (21-32) 06/12/22: Anion Gap 6 (3-11) 06/12/22 07: BUN 14 mg/dl (6-23) 06/12/22 07: Creatinine 1.06 mg/dl (0.6-1.4) 06/12/22 07: Est Cr Clr Drug Dosing 147.9 ml/min 06/12/22 07: Est GFR ( Amer) 110.9 ml/min 06/12/22 07: Est GFR (Non-Af Amer) 95.7 ml/min 06/12/22 07: BUN/Creatinine Ratio 13.2 (10-20) 06/12/22 07: Glucose 86 mg/dl (70-99(Fasting)) 06/12/22 07:27 Calcium 9.3 mg/dl (8.5-10.1) 06/12/22 07:27 Magnesium 2.0 mg/dl (1.7-2.4) 06/11/22 18:17 Total Bilirubin 0.5 mg/dl (0.2-1.0) 06/11/22 16:00 AST 36 U/L (13-39) 06/11/22 16:00 ALT 72 U/L (7-52) H 06/11/22 16:00 Alkaline Phosphatase 60 U/L (34-104) 06/11/22 16:00 Troponin I High Sens 3.3 pg/ml (0-20) 06/11/22 18:17 C-Reactive Protein < 0.50 mg/dl (0-0.5) 06/12/22 07:27 Total Protein 7.6 gm/dl (6.0-8.3) 06/11/22 16:00 Albumin 4.8 gm/dl (3.4-5.0) 06/11/22 16:00 Globulin 2.8 gm/dl (2.5-4.0) 06/11/22 16:00 Albumin/Globulin Ratio 1.7 (0.9-2) 06/11/22 16:00 Lyme Disease IgG Ab Negative (Negative) 06/11/22 18:16 Lyme Disease IgM Ab Positive (Negative) A 06/11/22 18:16 SARS-CoV-2, RNA, NAAT NEGATIVE (NEGATIVE) 06/11/22 18:18 Impressions Chest CTA 06/11/22 18:08 CT angio chest PE protocol CT DOSE: 893.46 mGy.cm HISTORY: 26 years-old Male with chest pain w/ exertion, dyspnea. Acute shortness of breath with chest pain TECHNIQUE: Multiple CTA images of the chest were obtained after the intravenous administration of 120 ml Optiray. Coronal and sagittal MIPS were obtained from the axial data set and were submitted for review. All measurements were obtained according to NASCET criteria. A dose lowering technique was utilized adhering to the principles of ALARA. COMPARISON: CT abdomen and pelvis 01/23/2016 FINDINGS: CTA: There is adequate opacification of the pulmonary arteries to the level of the segmental branches without convincing evidence of acute pulmonary embolism. Study is mildly limited secondary to respiratory motion artifact. Normal thoracic aorta.Heart size is normal. CT CHEST: No dominant thyroid nodule is seen. No pathologically adenopathy by CT size criteria. There is no pneumothorax, pleural effusion or focal airspace consolidation. Hepatic steatosis. No acute abnormality of the imaged upper abdomen. The osseous structures appear intact. IMPRESSION: 1. No acute intrathoracic abnormality. No pulmonary emboli. 2. Hepatic steatosis. ACT 112: Negative or not required by law. The above report was generated using voice recognition software. It may contain grammatical, syntax or spelling errors. Electronically signed by: Hung Ariza M.D. 06/11/2022 7:28 PM Hospital Course (1) Lyme disease: 26 year old male with no significant past medical history presented to the ED with chest pain. He is suspected to have acute lyme disease with IgM positive, IgG negative, western blot pending. He was seen by cardiology and deemed not to have any evidence of lyme carditis or pericarditis. His trop, ekg, echo unremarkable. His chest pain has resolved. He has been ambulating in the room without any chest pain or shortness of breath. States that few days back, he noticed 'may be a tick' on his right shoulder at the tattoo area when he was picking up his dog which he flicked. There is a bite abiel but no evidence of erythema migrans and no cellulitis. He will be discharged home on doxy bid for 10 days and follow up with PCP for further management and follow up on the Western blot. He is comfortable and stable for discharge. Total Time Total Time Spent Total Time Spent (In Minutes): 32 Discharge Plan Discharge Items Patient Disposition: Home - Self-Care Reason For Visit: PATRICIO, RHEA LYME CARDITIS Discharge Diagnosis: Lyme disease Condition on Discharge: Good Activity: Resume your previous activity Non-emergency contact: Primary Care Provider Call non-emergency contact if: you have any medication questions, your symptoms worsen, your pain is concerning for you and you have a fever Follow-up/Referrals: Harsh Shepard MD [Primary Care Provider] - (Date & Time 06/18/2022 12:00 PM Provider DO [facility] ) Diet: Regular Addtl Attending Provider Instructions: Continue doxycycline twice daily for 10 days for your lyme disease. Follow up with family doctor to follow up on the western blot test Pending Studies at Discharge: No Stand-Alone Forms: My [facility], Smoking Cessation Medications and DC Order Prescriptions: New doxycycline hyclate 100 mg Capsule 100 mg PO BID Qty: 20 0RF Continued hydroxyzine HCl 50 mg tablet 50 mg PO QID PRN (Reason: Anxiety) sertraline 25 mg tablet 25 mg PO DAILY albuterol sulfate 90 mcg/actuation HFA aerosol inhaler 2 puff INHALATION Q4H PRN (Reason: Shortness Of Breath Or Wheezing) Discharge Orders: Discharge Order (Routine); Ordered 06/12/22 Ordered By: Piero Sorenson Admission Data Admit Date/Time: 06/11/22 21:56 Attending Provider: Piero Sorenson Admit Provider: James Wilson Primary Care Provider: Harsh Shepard Other Providers: Gaston Hernandez ; Timi Eddy ; Polo Negrete ; Filippo Danielson ; Austin Dueñas ; Abiel Bennett ; Michelle Diaz ; Shandra Hartley ; Maya Alexandra ; Edward Presley ; James Wilson ; Tomer Collins ; Anabell Hilliard ; Richard Han I. ; Willi Bruce II ; Norma Nye ; Abiel Santoyo ; Km Sherman Other Interventions: Discharge Summary Assessment (RN) Last Done: 06/12/22 12:49
[2022-06-12] MEDS ORDERED: cefTRIAXone SODIUM 2,000 MG in DEXTROSE 5% 50 ML IV SCH (22:00)
[2022-06-13 13:57] LABS: 18KDIGG Band NON-REACTIVE; 23KDIGG Band NON-REACTIVE; 23KDIGM Band REACTIVE; 28KDIGG Band NON-REACTIVE; 30KDIGG Band NON-REACTIVE; 39KDIGG Band NON-REACTIVE; 39KDIGM Band NON-REACTIVE; 41KDIGG Band NON-REACTIVE; 41KDIGM Band NON-REACTIVE; 45KDIGG Band NON-REACTIVE; 58KDIGG Band NON-REACTIVE; 66KDIGG Band NON-REACTIVE; 93KDIGG Band NON-REACTIVE; Lyme Antibodies, WB IgG NEGATIVE (NEGATIVE); Lyme Antibodies, WB IgM NEGATIVE (NEGATIVE)
== END 2022-06-12 15:04 | disposition home or self-care (01) ==
LOC: 2S 15:23 → ED 15:23 → 2S 22:37